=== PATIENT | female | born 1960 | race Caucasian/White ===

== ENCOUNTER 2019-05-17 08:38 | Outpatient (CLI) | payer BC, SELFPAY ==
--- NOTE | ~2019-05-17 | MM_ITS ---
EXAMINATION: MM screening young BI w ce HISTORY: Screening mammogram TECHNIQUE: Craniocaudal and mediolateral oblique 3-D tomosynthesis images were obtained and synthetic 2-D images were generated. CAD analysis was submitted and interpreted. COMPARISON: Comparison to multiple prior studies sequentially, with oldest reviewed study dated 10/2015. BREAST PARENCHYMAL COMPOSITION: The breasts are heterogeneously dense, which may obscure small masses . FINDINGS: There is no evidence of suspicious mass, calcification, or architectural distortion to sugg est malignancy in either breast. There has been no suspicious interval change. IMPRESSION: 1. No mammographic evidence of malignancy. 2. Recommend routine screening mammography in one year. BI-RADS Category 1: Negative Reviewed, dictated and finalized at location A.
== END 2019-05-17 08:39 | disposition home or self-care (01) ==
LOC: ANHIMG 08:46
PROVIDERS: PCP Obstetrics & Gynecology; Visit Provider Obstetrics & Gynecology
DX: Z12.31 Encounter for screening mammogram for malignant neoplasm of breast (principal)
CPT/HCPCS: 77063; 77067

== ENCOUNTER 2020-06-27 16:33 | Outpatient (CLI) | payer BC, SELFPAY ==
--- NOTE | ~2020-06-27 | MM_ITS ---
EXAMINATION: MM screening young BI w ce HISTORY: Screening mammogram TECHNIQUE: Craniocaudal and mediolateral oblique 3-D tomosynthesis images were obtained and synthetic 2-D images were generated. CAD analysis was submitted and interpreted. COMPARISON: 05/17/2019, 04/26 2018, 04/22/2017 bilateral digital screening mammogram examinations BREAST PARENCHYMAL COMPOSITION: There are scattered areas of fibroglandular density. FINDINGS: There is no evidence of suspicious mass, calcification, or architectural distortion to sugg est malignancy in either breast. There has been no suspicious interval change. IMPRESSION: 1. No mammographic evidence of malignancy. 2. Recommend routine screening mammography in one year. BI-RADS Category 1: Negative Reviewed, dictated and finalized at location A.
== END 2020-06-27 16:34 | disposition home or self-care (01) ==
PROVIDERS: PCP Obstetrics & Gynecology; Visit Provider Obstetrics & Gynecology
DX: Z12.31 Encounter for screening mammogram for malignant neoplasm of breast (principal)
CPT/HCPCS: 77063; 77067

== ENCOUNTER 2021-07-15 17:05 | Outpatient (CLI) | payer BC, SELFPAY ==
--- NOTE | ~2021-07-15 | MM_ITS ---
EXAMINATION: MM screening [facility] BI w ce HISTORY: Screening mammogram TECHNIQUE: Craniocaudal and mediolateral oblique 3-D tomosynthesis images were obtained and synthetic 2-D images were generated. CAD analysis was submitted and interpreted. COMPARISON: 06/27/2020, 05/17/2019, 04/26/2018 BREAST PARENCHYMAL COMPOSITION: There are scattered areas of fibroglandular density. FINDINGS: There is no suspicious mass, calcification, or architectural distortion to suggest malignan cy in either breast. There has been no suspicious interval change. IMPRESSION: 1. No mammographic evidence of malignancy. 2. Recommend routine screening mammography in one year. BI-RADS Category 1: Negative Reviewed, dictated and finalized at location A.
== END 2021-07-15 17:06 | disposition home or self-care (01) ==
PROVIDERS: PCP Nurse Practitioner Family; Visit Provider Obstetrics & Gynecology
DX: Z12.31 Encounter for screening mammogram for malignant neoplasm of breast (principal)
CPT/HCPCS: 77063; 77067

== ENCOUNTER 2021-08-06 00:39 | Day surgery (SDC) | payer BC, SELFPAY ==
[2021-07-15 14:35] VITALS: BMI 24.5
--- NOTE | 2021-08-05 16:38 | PM.HPGS ---
History of Present Illness History of Present Illness Consent: Risks, benefits, and alternatives have been discussed and questions answered. Patient agrees to proceed with procedure. Chief complaint: neoplasm screening Narrative: Jaqueline Clements is a 61 year old female referred for colon cancer screening. This is her 1st colonoscopy. She does not have a family history of colon cancer. 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 Gender identity (if verbalized by the patient): Female Sexual Orientation (if Verbalized by the Patient): Straight or Heterosexual Spiritual care concerns: No Meds Home Medications and Allergies Home Medications Medication Instructions Recorded Confirmed Type multivitamin with minerals-folic 1 tablet PO DAILY 07/15/21 07/15/21 History acid 0.4 mg tablet Allergies Allergy/AdvReac Type Severity Reaction Status Date / Time No Known Allergies Allergy Unverified 08/06/21 06:19 Exam Const: General: alert Orientation/consciousness: patient oriented x3 Resp: Auscultation: clear to auscultation bilaterally Cardio: Rhythm: regular rhythm GI: GI Palp: Yes Soft to palpation and No Tenderness to palpation present (GI) Neuro: General: patient oriented x3 Assessment and Plan Assessment and plan (1) Colon cancer screening: Code(s): Z12.11 - Encounter for screening for malignant neoplasm of colon Status: Acute Plan Colonoscopy with possible biopsy or polypectomy or cautery or injection of substances.
[2021-08-06 06:20] VITALS: BP 131/69; PULSE 73; RESP 16; TEMP 36.6; O2SAT 100
[2021-08-06] MEDS: LACTATED RINGERS 1,000 ML 150 ML IV CONT (06:33)
--- NOTE | 2021-08-06 07:19 | WPDANESEPPF ---
Anes - Initial Pre Proc Eval Procedure: Operation Date: 08/06/21 07:30 Proposed Procedures p Screening Colonoscopy - Federico Osorio MD Date/Time: 08/06/21 07:19 Surgeon: Federico Osorio MD Pre Op Diagnosis: neoplasm screening Patient Data Age: 61 Gender: F Height: 1.52 m Weight: 58.5 kg Last Vital Signs Temp 97.9 F 08/06/21 06:20 Pulse 73 08/06/21 06:20 Resp 16 08/06/21 06:20 BP 131/69 08/06/21 06:20 Pulse Ox 100 08/06/21 06:20 O2 Del Method Room Air 08/06/21 06:20 Allergies Allergy/AdvReac Type Severity Reaction Status Date / Time No Known Allergies Allergy Unverified 08/06/21 06:19 Home Medications Medication Instructions Recorded Confirmed Type multivitamin with minerals-folic 1 tablet PO DAILY 07/15/21 07/15/21 History acid 0.4 mg tablet Patient hx anesthesia problems: none Family hx anesthesia problems: none Results Review: All pre-operative results and documents have been reviewed as part of the pre-operative evaluation. 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 Gender identity (if verbalized by the patient): Female Sexual Orientation (if Verbalized by the Patient): Straight or Heterosexual Spiritual care concerns: No Anes - Eval Final PreProcedure Day of Procedure 08/06/21 07:19 Patient weight: normal Heart: regular rate and rhythm Lungs: clear to auscultation Airway: Mallampati scale class II Neurological: alert and oriented Last oral intake: >/= 8 hours ASA classification: I Emergent: no Anesthetic plan: proceed Anesthesia type and monitoring: general GIVS and standard monitoring Results Review: All pre-operative results and documents have been reviewed as part of the pre-operative evaluation. Informed Consent: The patient's anesthetic plan and its attendant risks and benefits were discussed with the patient/family/POA. Questions were solicited and answers provided to the satisfaction of the patient/family/POA.
[2021-08-06 07:56] VITALS: BP 84/50; PULSE 70; RESP 19; O2SAT 100
[2021-08-06 08:06] VITALS: BP 98/69; PULSE 62; RESP 22; O2SAT 100
[2021-08-06 08:16] VITALS: BP 111/76; PULSE 65; RESP 18; O2SAT 100
== END 2021-08-06 08:25 | disposition home or self-care (01) ==
PROVIDERS: PCP Nurse Practitioner Family; Visit Provider Internal Medicine Gastroenterology
PROC: 0DJD8ZZ Inspection of Lower Intestinal Tract, Via Natural or Artificial Opening Endoscopic (ICD-10-PCS; CPT 45378; principal; 2021-08-06 07:30)
DX: Z12.11 Encounter for screening for malignant neoplasm of colon (principal); K57.30 Diverticulosis of large intestine without perforation or abscess without bleeding
CPT/HCPCS: 45378; J2704; J7120

== ENCOUNTER 2021-09-11 14:42 | Outpatient (CLI) | payer BC, SELFPAY ==
--- NOTE | ~2021-09-11 | DEXA_ITS ---
Bone Density Report Name: SVETLANA MCCARTY Age: 61 Sex: Female Ethnicity: White Date of : 1960 Indication: postmenopausal; screening for osteoporosis; Referring Provider: VANESSA, CAREY Darden Study: Bone densitometry was performed. Exam Date: September 11, 2021 Accession number: [id number] Bone Density: Region BMD T-score Z-score Classification AP Spine(L1-L4) 0.739 -2.8 -1.4 Osteoporosis Femoral Neck (Left) 0.595 -2.3 -1.0 Osteopenia Total Hip (Left) 0.717 -1.8 -0.9 Osteopenia Femoral Neck (Right) 0.609 -2.2 -0.9 Osteopenia Total Hip (Right) 0.699 -2.0 -1.1 Osteopenia Total Hip Mean 0.708 -1.9 -1.0 Osteopenia World Health Organization criteria for BMD impression classify patients as: Normal (T-score at or above -1.0), Osteopenia (T-score between -1.0 and -2.5), or Osteoporosis (T-score at or below -2.5). 10-year Fracture Risk: FRAX not reported because: Some T-score for Spine Total or Hip Total or Femoral Neck at or below -2.5 Clinical Information Provided by Patient: Patient maximum height was 60 Menopause Age: 57 No regular weight bearing exercise Drinks caffeinated beverages Onset of menses at age 16 Number of children 2 Impression: The patient has osteoporosis, based on the Total Spine T-score. Discussion: INCREASED RISK OF FRACTURE. BONE DENSITY IS UNDESIRABLY LOW AT ONE OR MORE SKELETAL SITES, CONSISTENT WITH POSTMENOPAUSAL OSTEOPOROSIS. This patient's lowest T-score meets the World Health Organization's (WHO) criteria for osteoporosis at one or more sites (T-score -2.5 or below). In untreated patients, the risk of osteoporotic fracture increases approximately two-fold for each 1.0 SD decrease in T-score. Low bone density is not the only risk factor for fracture; also consider factors such as patient's age, frailty or poor health, risk of falling, risk of injury, previous osteoporotic fracture, family history of osteoporosis, cigarette smoking, low body weight, etc. Not everyone with low bone mineral density has osteoporosis; osteomalacia and other metabolic bone disorders should also be considered. Patients who have osteoporosis should be evaluated for specific diseases and conditions (secondary causes) that may cause or contribute to bone loss. The [place] Association [employer] Endocrinologists (AACE) and National Osteoporosis Foundation (NOF) recommend pharmacologic intervention for all postmenopausal women whose T-score is in this range. The patient should follow a healthful lifestyle (good nutrition with adequate calcium and vitamin D, and appropriate weight-bearing exercise). Follow-Up: Consider a repeat BMD and Vertebral Fracture Assessment (VFA) exam in 2 years or sooner if medically necessary, to reassess this patient's status. Reported by: [facility] on 09/11/2021 3:05:00 PM.
== END 2021-09-11 14:43 | disposition home or self-care (01) ==
PROVIDERS: PCP Nurse Practitioner Family; Visit Provider Nurse Practitioner Family
DX: Z13.820 Encounter for screening for osteoporosis (principal); Z78.0 Asymptomatic menopausal state; M81.0 Age-related osteoporosis without current pathological fracture; M85.89 Other specified disorders of bone density and structure, multiple sites
CPT/HCPCS: 77080

== ENCOUNTER 2022-10-14 16:30 | Outpatient (CLI) | payer BC, SELFPAY ==
--- NOTE | ~2022-10-14 | MM_ITS ---
EXAMINATION: MM screening young BI w ce HISTORY: Screening TECHNIQUE: Craniocaudal and mediolateral oblique 3-D tomosynthesis images were obtained and synthetic 2-D images were generated. CAD analysis was submitted and interpreted. COMPARISON: Comparison to multiple prior studies sequentially, with oldest reviewed study dated 10/19. BREAST PARENCHYMAL COMPOSITION: There are scattered areas of fibroglandular density. FINDINGS: The right breast is stable without evidence for malignancy. There are subtle asymmetries in the upper outer quadrant of the left breast with possible architectural distortion. IMPRESSION: 1. Possible new subtle asymmetries upper outer quadrant of the left breast with questionable architec tural distortion. 2. Additional mammographic views and possible breast ultrasound are recommended. BI-RADS Category 0: Incomplete: Needs additional imaging evaluation. Reviewed, dictated and finalized at location A. IMPRESSION: 1. Possible new subtle asymmetries upper outer quadrant of the left breast with questionable architectural distortion. 2. Additional mammographic views and possible breast ultrasound are recommended . BI-RADS Category 0: Incomplete: Needs additional imaging evaluation.
== END 2022-10-14 16:31 | disposition home or self-care (01) ==
LOC: ANHIMG 16:31
PROVIDERS: PCP Nurse Practitioner Family; Visit Provider Obstetrics & Gynecology
DX: Z12.31 Encounter for screening mammogram for malignant neoplasm of breast (principal); R92.8 Other abnormal and inconclusive findings on diagnostic imaging of breast
CPT/HCPCS: 77063; 77067

== ENCOUNTER 2022-11-12 12:23 | Outpatient (CLI) | payer BC, SELFPAY ==
--- NOTE | ~2022-11-12 | MMUS_ITS ---
EXAMINATION: MM diagnostic young LT w ce, US breast LT limited HISTORY: Possible new subtle asymmetries/architectural distortion reported in upper outer left breast on 10/15/2019 screening mammogram TECHNIQUE: Additional 3-D tomosynthesis images of the left breast were performed and synthetic 2-D im ages were generated. CAD analysis was submitted and interpreted. High resolution upper outer quadrant left breast ultrasound was performed. COMPARISON: 10/15/2019 bilateral screening mammogram FINDINGS: MAMMOGRAPHIC FINDINGS: No suspicious mass or architectural distortion is detected mammographically ULTRASOUND: No suspicious mass or shadowing, cyst or other significant sonographic abnormality is noted. IMPRESSION: 1. No mammographic evidence of malignancy 2. Routine annual mammographic screening is recommended. BI-RADS Category 1: Negative Reviewed, dictated and finalized at location A. IMPRESSION: 1. No mammographic evidence of malignancy 2. Routine annual mammographic screening is recommended. BI-RADS Category 1: Negative
== END 2022-11-12 12:24 | disposition home or self-care (01) ==
PROVIDERS: PCP Nurse Practitioner Family; Visit Provider Obstetrics & Gynecology
DX: N64.89 Other specified disorders of breast (principal)
CPT/HCPCS: 76642; 77061; 77065; G0279

== ENCOUNTER 2022-12-18 08:14 | Emergency (ER) | payer BC, SELFPAY ==
[2022-12-18 08:28] VITALS: BP 146/75; PULSE 100; RESP 16; TEMP 36.9; O2SAT 97
--- NOTE | 2022-12-18 08:28 | ED.GENADULT ---
HPI - General Adult General Chief complaint: Fever Stated complaint: Fever Source: patient Mode of arrival: ambulatory Limitations: no limitations History of Present Illness HPI narrative: 62 y/o female presented for c/o fever and headache for one week, after returning from [facility]. States the first 3 days after onset were bad with body aches as well. States the fever is usually at 1400 and 1800 every day, then breaks. Reports decreased appetite. Pt states multiple covid tests at home were negative. Denies sick contacts. Denies cough, sob/wheezing, cp, palpitations, n/v/d. Patient admits to urinary frequency, some pressure with urination, and urgency. Alternating Tylenol and ibuprofen. Related Data Home Medications Medication Instructions Recorded Confirmed multivitamin with minerals-folic 1 tablet PO DAILY 07/15/21 12/18/22 acid 0.4 mg tablet rosuvastatin 5 mg tablet 5 mg DIRECTED 12/18/22 12/18/22 Allergies Allergy/AdvReac Type Severity Reaction Status Date / Time No Known Allergies Allergy Verified 07/21/22 07:59 Review of Systems Review of Systems: CONSTITUTIONAL: Reports fever and sweats EYES: Denies visual changes, redness, or discharge. ENT: Denies rhinorrhea, congestion, sore throat, or otalgia. CARDIOVASCULAR: Denies chest pain, palpitations, or edema. RESPIRATORY: Reports occasional cough denies wheezing or dyspnea. GASTROINTESTINAL: Reports decreased appetite denies abdominal pain, nausea, vomiting, or diarrhea. GENITOURINARY: Denies dysuria or hematuria. SKIN: Denies rash, itching, or wounds. MUSCULOSKELETAL: Denies back pain, joint pain, or myalgia. NEUROLOGIC: Reports headache, Denies numbness, tingling, or weakness. PSYCH: Denies depression or anxiety. All systems reviewed & are unremarkable except as noted in HPI and below PMFSH Past Medical History Medical History Basal cell carcinoma (BCC) in situ of skin (~04/29/14) lower back Screening mammogram, encounter for Family History Family History Mother Hypertension Father Hypertension Social History Social History Smoking status: Never smoker Alcohol intake: current Drinks per week: 1 Substance use: never Substance use type: does not use Lack of Transportation: No Lack of Food: Never True Current Housing: I Have Housing Concerned About Future Housing: No Difficulty Paying Gas/Electric Bills: No Difficulty Paying for Meds: No Currently Unemployed: No Education: Master's Degree or Higher Difficulty w/ Childcare or Family Care: No Living arrangements: with family Additional living arrangements comments: Occupation/Education: occupation 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 Please see nursing chart for further information. There is no relevant family history pertinent to the presenting complaint Exam Narrative: GENERAL: Well-appearing, and in no acute distress. HEAD: Normocephalic, atraumatic. EYES: EOMI. No redness or drainage. Conjunctivae normal. ENT: Mucous membranes pink and moist. No rhinorrhea. TMs normal bilaterally. Throat normal. Uvula midline. NECK: Normal AROM. Supple. No lymphadenopathy. CHEST: No respiratory distress. Clear to auscultation. HEART: Regular rate and rhythm. No murmur appreciated. Normal peripheral pulses. ABDOMEN: Soft, nontender, nondistended, normal active bowel sounds. MUSCULOSKELETAL: No bony tenderness. EXTREMITIES: Normal range of motion. No edema. SKIN:
== END 2022-12-18 09:34 | disposition home or self-care (01) ==
PROVIDERS: Emergency Provider Nurse Practitioner Family; PCP Nurse Practitioner Family
DX: R35.0 Frequency of micturition (principal); Z85.828 Personal history of other malignant neoplasm of skin
CPT/HCPCS: 81003; 87081; 87086; 87880; 99213; G0463

== ENCOUNTER 2022-12-23 10:06 | Emergency (ER) | payer BC, SELFPAY ==
[2022-12-23] VITALS (7 sets, daily range): BP systolic 127–143; BP diastolic 81–83; PULSE 70–94; RESP 16–25; TEMP 36.8; O2SAT 94–99
--- NOTE | ~2022-12-23 | CT_ITS ---
EXAMINATION: CT abdomen pelvis wo con DATE: 12/23/2022 13:26 INDICATION: Ascites TECHNIQUE: Computed tomography (CT) of the abdomen and pelvis was performed without intravenous contr ast. The dose-length product was 292.08 mGy-cm. Automated exposure control and iterative reconstructi on technique were employed. COMPARISON: None. FINDINGS: Right lower lobe airspace disease, compatible with pneumonia. Small right pleural effusion. Trace left pleural effusion. Heart size normal. The liver, spleen, pancreas, adrenal glands and kidn eys are unremarkable. Gallbladder is present. Nonobstructive bowel gas pattern. No free air or free f luid. No significant vascular abnormality. No lymphadenopathy. No lymphadenopathy. IMPRESSION: 1. Right lower lobe pneumonia with small right pleural effusion. Trace left pleural effusion. Reviewed, dictated and finalized at location B. IMPRESSION: 1. Right lower lobe pneumonia with small right pleural effusion. Trace left ple ural effusion.
--- NOTE | ~2022-12-23 | XR_ITS ---
Clinical Indication: Elevated BNP PA and lateral views of the chest: Comparison: None Findings: There is mild bibasilar airspace disease, right worse than left, suggestive of mild pulmona ry edema. Probable minimal pleural effusions. Cardiomediastinal silhouette is within normal limits. Bones and soft tissues are unremarkable. Impression: Probable bibasilar pulmonary edema, right worse than left, with minimal pleural effusions. Correlate clinically for pneumonia. Reviewed, dictated and finalized at [facility]. Impression: Probable bibasilar pulmonary edema, right worse than left, with minimal pleural effusions. Correlate clinically for pneumonia.
--- NOTE | 2022-12-23 11:44 | ED.GENADULT ---
HPI - General Adult General Chief complaint: Unspecified Stated complaint: swelling of extremities/abd Time Seen by Provider: 12/23/22 11:22 History of Present Illness HPI narrative: 62-year-old female no medical problems presents to the emergency room for evaluation of swelling to her extremities and abdomen. Patient states that she has been experiencing a low-grade fever for over a week and went to urgent care. Provider urgent care collected a urinalysis which showed positive for hematuria. Patient was placed on Cipro and began taking that 5 days ago. States 2 days ago she began developing swelling to her hands and feet Related Data Home Medications Medication Instructions Recorded Confirmed multivitamin with minerals-folic 1 tablet PO DAILY 07/15/21 12/18/22 acid 0.4 mg tablet rosuvastatin 5 mg tablet 5 mg DIRECTED 12/18/22 12/18/22 Allergies Allergy/AdvReac Type Severity Reaction Status Date / Time No Known Allergies Allergy Verified 12/23/22 10:09 Review of Systems Review of Systems: CONSTITUTIONAL: Denies fever, chills, or sweats. EYES: Denies visual changes, redness, or discharge. ENT: Denies rhinorrhea, congestion, sore throat, or otalgia. CARDIOVASCULAR: Denies chest pain, palpitations, or edema. RESPIRATORY: Denies cough or dyspnea. GASTROINTESTINAL: Denies abdominal pain, nausea, vomiting, or diarrhea. GENITOURINARY: Denies dysuria or hematuria. SKIN: Denies rash or itching. MUSCULOSKELETAL: Denies back pain, joint pain, or myalgia. NEUROLOGIC: Denies headache, numbness, dizziness, or weakness. PSYCHIATRIC: Denies anxiety or depression. [facility] Past Medical History Medical History Basal cell carcinoma (BCC) in situ of skin (~04/29/14) lower back Screening mammogram, encounter for Family History Family History Mother Hypertension Father Hypertension Social History Social History Smoking status: Never smoker Alcohol intake: current Drinks per week: 1 Substance use: never Substance use type: does not use Lack of Transportation: No Lack of Food: Never True Current Housing: I Have Housing Concerned About Future Housing: No Difficulty Paying Gas/Electric Bills: No Difficulty Paying for Meds: No Currently Unemployed: No Education: Master's Degree or Higher Difficulty w/ Childcare or Family Care: No Living arrangements: with family Additional living arrangements comments: Occupation/Education: occupation 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 HEAD: Normocephalic, atraumatic. EYES: Conjunctivae normal, PERRLA and EOMI. CHEST: Clear to auscultation. No respiratory distress. No wheezes rales or rhonchi. No tenderness. HEART: Regular rate and rhythm. No murmur heard. Normal peripheral pulses. ABDOMEN: Soft, nontender, nondistended, normal active bowel sounds. BACK: No CVA tenderness EXTREMITIES: Normal range of motion. Generalized nonpitting edema to hands and ankles. No clubbing or cyanosis SKIN: Warm, dry, no rash. No noted wounds NEURO: No focal deficits. Alert and oriented x3. MAEW. CN's II-XI intact bilaterally, normal gait PSYCH: Cooperative. Normal mood and affect. Course Vital Signs Vital signs: Vital Signs Temperature 36.8 C 12/23/22 10:21 Pulse Rate 94 12/23/22 10:21 Respiratory Rate 16 12/23/22 10:21 Blood Pressure 143/81 H 12/23/22 10:21 Pulse Oximetry 94 12/23/22 10:21 Temperature 36.8 C 12/23/22 10:21 Pulse Rate 70 12/23/22 13:23 Respiratory R
[2022-12-23 12:08] LABS: Basophils Absolute Auto 0.1 K/mm3 (0.0-0.1); Basophils Percent Auto 0.5 % (0.2-1.2); Eosinophils Absolute Auto 0.2 K/mm3 (0-0.3); Eosinophils Percent Auto 1.2 % (0-4.4); Hematocrit 36.6 % (37.0-47.0); Hemoglobin 11.7 g/dL (12.0-15.0); Immature Granulocyte Absolute 0.22 K/mm3 (0.00-0.031); Immature Granulocyte Percent A 1.5 % (0-0.5); Lymphocytes Absolute Auto 1.98 K/mm3 (0.9-3.2); Lymphocytes Percent Auto 13.2 % (18.3-44.2); Mean Corpuscular Hemoglobin 29.8 pg (26-34); Mean Corpuscular Volume 93.1 fl (80-100); Mean Platelet Volume 8.5 fl (7.4-10.4); Monocytes Percent Auto 6.6 % (2.6-8.5); Neutrophils Absolute Auto 11.5 K/mm3 (1.3-6.7); Platelet Count Result 699 k/mm3 (150-375); Red Blood Count 3.93 M/mm3 (4.2-5.4); Red Cell Distribution Width 13.2 % (11.5-14.5)
[2022-12-23 12:11] LABS: Add Urine Microscopic? YES; Appearance Urine Clear (Clear); Bacteria Urine None Seen /hpf; Bilirubin Urine Negative (Negative); Blood Urine 1+ (Negative); Color Urine Yellow (Yellow); Glucose Urine UA Negative (Negative); Ketones Urine Negative (Negative); Leukocyte Esterase Ur Negative LEU/UL (Negative); Nitrate Urine Negative (Negative); Non Pathogenic Casts 0-2; Protein Urine Negative (Negative); Squamous Epithelial Cell Urine None seen /hpf (Few); Urobilinogen Urine 0.2 mg/dL (<2.0); WBC Urine 0-5 /hpf
[2022-12-23 12:24] LABS: Alanine Aminotransferase 26 U/L (6-35); Albumin Level 3.4 g/dL (3.5-5.1); Alkaline Phosphatase 88 U/L (38-126); Anion Gap 3 mmol/L (8-16); Aspartate Amino Transferase 45 U/L (14-36); Bilirubin,Total 0.4 mg/dL (0.2-1.3); Blood Urea Nitrogen 12 mg/dL (7-17); Calcium 8.5 mg/dL (8.4-10.2); Carbon Dioxide 36 mmol/L (22-30); Chloride 100 mmol/L (98-107); Estimated CRCL calculation 61 ml/min; Estimated Glomerular Filt Rate > 60; Glucose 93 mg/dL (65-110); Potassium 2.9 mmol/L (3.4-5.0); Sodium 139 mmol/L (137-145)
[2022-12-23 12:27] LABS: NT Pro B Type Natriuretic Pept 2140 pg/mL (19.9-100)
--- NOTE | 2022-12-23 13:12 | ECG_ITS ---
Measurements Intervals [place] Rate: 80 P: -3 KS: 138 QRS: -46 QRSD: 149 T: 83 QT: 433 QTc: 500 Interpretive Statements SINUS RHYTHM MARKED LEFT AXIS DEVIATION [QRS AXIS < -30] LEFT BUNDLE BRANCH BLOCK [120+ ms QRS DURATION, 80+ ms Q/S IN V1/V2, 85+ ms R IN I/aVL/V5/V6] NO PREVIOUS ECG AVAILABLE FOR COMPARISON Electronically Signed On 12-23-2022 20:25:22 CDT by Radha English M.D.
[2022-12-23 14:15] LABS: Troponin I < 0.012 ng/mL (0.000-0.034)
[2022-12-23] MEDS: POTASSIUM CHLORIDE 20 MEQ PACKET (FOR LIQUID) 40 MEQ PO (14:36)
== END 2022-12-23 15:13 | disposition home or self-care (01) ==
PROVIDERS: Emergency Provider Nurse Practitioner Family; PCP Nurse Practitioner Family
DX: J18.9 Pneumonia, unspecified organism (principal); I50.9 Heart failure, unspecified; I44.7 Left bundle-branch block, unspecified
CPT/HCPCS: 36415; 71046; 74176; 80053; 81001; 83880; 84484; 85025; 93005; 96365; 99284; A9270; J0696

== ENCOUNTER 2022-12-23 18:21 | Observation (INO) | payer BC, SELFPAY ==
--- NOTE | ~2022-12-23 | CT_ITS ---
EXAMINATION: CTA chest PE protocol DATE: 12/23/2022 21:30 INDICATION: SOB with elevated D-dimer TECHNIQUE: Computed tomography angiography (CTA) of the chest was performed with 100 mL Omnipaque-350 intravenous contrast timed to evaluate the pulmonary arteries. Coronal maximum intensity projection 3D-reconstructions were created by the technologist. The dose-length product (DLP) was 172.91 mGy-cm. Automated exposure control and iterative reconstruction technique were employed. COMPARISON: None. FINDINGS: Lung parenchyma and airways: Dependent right lower lobe consolidation. Scattered centrilobular nodula r groundglass opacities. Pleura: Small volume right pleural fluid collection. Thoracic inlet, axillae and chest wall: Unremarkable. Thoracic aorta: Normal. Mediastinum: Normal. Heart and pericardium: Normal. Coronary artery calcifications: . Upper abdomen: No significant finding. Bones: No acute osseous finding. Pulmonary arteries: Study quality: Adequate. No pulmonary emboli detected. IMPRESSION: No CT evidence of acute pulmonary embolus. Dependent right lower lobe consolidation may represent atelectasis or infection. Scattered groundglass nodular opacities as can be seen with hypersensitivity pneumonitis, respiratory bronchitis, or infectious airways disease. Recommend low-dose noncontrast CT follow-up after appropr iate therapy to assess for resolution. Reviewed, dictated and finalized at location K. IMPRESSION: No CT evidence of acute pulmonary embolus. Dependent right lower lobe consolidation may represent atelectasis or infection . Scattered groundglass nodular opacities as can be seen with hypersensitivity pn eumonitis, respiratory bronchitis, or infectious airways disease. Recommend low -dose noncontrast CT follow-up after appropriate therapy to assess for resoluti on.
[2022-12-23 18:22] VITALS: BP 147/86; PULSE 89; RESP 20; TEMP 36.5; O2SAT 99
--- NOTE | 2022-12-23 19:08 | ECG_ITS ---
Measurements Intervals [place] Rate: 79 P: 9 MT: 137 QRS: -32 QRSD: 134 T: 64 QT: 401 QTc: 460 Interpretive Statements SINUS RHYTHM MARKED LEFT AXIS DEVIATION [QRS AXIS < -30] LEFT BUNDLE BRANCH BLOCK [120+ ms QRS DURATION, 80+ ms Q/S IN V1/V2, 85+ ms R IN I/aVL/V5/V6] INTERPRETATION BASED ON A DEFAULT AGE OF 40 YEARS COMPARED TO ECG 12/23/2022 13:43:46 NO SIGNIFICANT CHANGES Electronically Signed On 12-23-2022 20:38:27 CDT by Radha English M.D.
[2022-12-23 19:21] VITALS: PULSE 82
--- NOTE | 2022-12-23 19:35 | ED.GENADULT ---
HPI - General Adult General Chief complaint: Unspecified Stated complaint: chf Time Seen by Provider: 12/23/22 19:02 Source: patient and family Limitations: no limitations History of Present Illness HPI narrative: Patient is a 62-year-old female present to the emergency department for 1 week of diffuse swelling throughout her body in addition to dyspnea on exertion. Patient denies any chest pain. Patient notes that she was here earlier today and had a full work-up and was started on antibiotics for pneumonia and talk to her primary care physician who told her to come back in to be admitted for CHF. Patient denies any history of heart disease. Patient denies history of blood clots or unilateral lower extremity swelling. Patient notes that she has been also being treated for urinary tract infection for the past approximately 4 to 5 days because she had blood in her urine but denies any history of dysuria, urinary frequency, urinary urgency. Patient denies any preceding illness in the past 2 months but notes that she was treated for urinary tract infection because approximately 1 week ago she developed fever while in [place] and subsequently sought a further evaluation when she got back to the . Patient denies vomiting, nausea, diarrhea, abdominal pain, numbness, weakness, sore throat, nasal congestion. Patient admits to a nonproductive cough for the past 1 week. Related Data Home Medications Medication Instructions Recorded Confirmed multivitamin with minerals-folic 1 tablet PO DAILY 07/15/21 12/24/22 acid 0.4 mg tablet rosuvastatin 5 mg tablet 5 mg PO QHS 12/18/22 12/24/22 Allergies Allergy/AdvReac Type Severity Reaction Status Date / Time No Known Allergies Allergy Verified 12/23/22 10:09 Review of Systems Review of Systems: A 10 system review of systems was completed on the patient and is negative except for what is stated in the HPI. Nursing and ancillary documentation was reviewed. [facility] Past Medical History Medical History (Updated 12/26/22 @ 02:[address] DO) Basal cell carcinoma (BCC) in situ of skin (~04/29/14) lower back Colon cancer screening Screening mammogram, encounter for Family History Family History Mother Hypertension Father Hypertension Social History Social History Smoking status: Never smoker Alcohol intake: current Drinks per week: 2 Substance use: never Substance use type: does not use Lack of Transportation: No Lack of Food: Never True Current Housing: I Have Housing Concerned About Future Housing: No Difficulty Paying Gas/Electric Bills: No Difficulty Paying for Meds: No Currently Unemployed: No Education: Bachelor's Degree Difficulty w/ Childcare or Family Care: No Living arrangements: with family Additional living arrangements comments: Occupation/Education: occupation 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 Please see the nursing chart for further information. There is no relevant family history pertinent to the presenting complaint. Exam Narrative: CONST: No acute distress. Well nourished. HENMT: Head is normocephalic and atraumatic. Moist mucous membranes. No posterior oropharynx erythema. EYES: No conjunctival icterus, injection, or pallor. PERRL. NECK: No meningeal signs. RESP: Able to speak in full sentences. Normal respiratory effort. CTAB however slightly diminished at the bilateral bases. CARDIO: Regular rate. Regular rhythm. 2+ DP and radial pulses bilaterally. GI:
[2022-12-23 19:42] LABS: Basophils Absolute Auto 0.1 K/mm3 (0.0-0.1); Basophils Percent Auto 0.5 % (0.2-1.2); Eosinophils Absolute Auto 0.3 K/mm3 (0-0.3); Eosinophils Percent Auto 2.1 % (0-4.4); Hematocrit 35.8 % (37.0-47.0); Hemoglobin 11.2 g/dL (12.0-15.0); Immature Granulocyte Absolute 0.15 K/mm3 (0.00-0.031); Immature Granulocyte Percent A 1.2 % (0-0.5); Lymphocytes Absolute Auto 2.17 K/mm3 (0.9-3.2); Lymphocytes Percent Auto 16.6 % (18.3-44.2); Mean Corpuscular HGB Conc 31.3 g/dl (32-36); Mean Corpuscular Hemoglobin 29.6 pg (26-34); Mean Corpuscular Volume 94.5 fl (80-100); Mean Platelet Volume 8.4 fl (7.4-10.4); Monocytes Percent Auto 7.9 % (2.6-8.5); Neutrophils Absolute Auto 9.4 K/mm3 (1.3-6.7); Neutrophils Percent Auto 71.7 % (45.5-73.1); Platelet Count Result 664 k/mm3 (150-375); Red Blood Count 3.79 M/mm3 (4.2-5.4); Red Cell Distribution Width 13.2 % (11.5-14.5)
[2022-12-23 19:52] LABS: Prothrombin Time 13.3 Seconds (11.1-14.7)
[2022-12-23 19:57] LABS: Alanine Aminotransferase 26 U/L (6-35); Albumin Level 3.2 g/dL (3.5-5.1); Alkaline Phosphatase 75 U/L (38-126); Anion Gap 1 mmol/L (8-16); Aspartate Amino Transferase 50 U/L (14-36); Bilirubin,Total 0.3 mg/dL (0.2-1.3); Blood Urea Nitrogen 16 mg/dL (7-17); Calcium 8.4 mg/dL (8.4-10.2); Carbon Dioxide 37 mmol/L (22-30); Chloride 102 mmol/L (98-107); Estimated CRCL calculation 47 ml/min; Estimated Glomerular Filt Rate > 60; Glucose 108 mg/dL (65-110); Magnesium 2.1 mg/dL (1.6-2.3); Potassium 3.6 mmol/L (3.4-5.0); Sodium 140 mmol/L (137-145)
[2022-12-23 20:02] LABS: Partial Thromboplastin Time 35.1 SECONDS (22.3-36.8)
[2022-12-23 20:08] LABS: D Dimer 2.86 ug/mL (<0.48); NT Pro B Type Natriuretic Pept 1730 pg/mL (19.9-100); Troponin I < 0.012 ng/mL (0.000-0.034)
--- NOTE | 2022-12-23 22:05 | PC.NURSE ---
Patient states she is post-menopausal. Did not perform bedside test.
[2022-12-23 22:19] VITALS: BP 137/93
[2022-12-23 23:00] VITALS: BP 148/89
[2022-12-23 23:40] VITALS: BP 145/81; PULSE 88; RESP 20; O2SAT 99
[2022-12-23] MEDS: SODIUM CHLORIDE 0.9% IV 1,000 ML 125 ML IV CONT (23:42)
[2022-12-24] VITALS (14 sets, daily range): BP systolic 123–162; BP diastolic 64–89; PULSE 70–108; RESP 16–20; TEMP 36.2–36.8; O2SAT 94–100; BMI 26.1
--- NOTE | 2022-12-24 | ECHO_ITS ---
Patient Info Name: Jaqueline Clements Age: 62 years : 1960 Gender: Female Ht: 60 in Wt: 120 lbs BSA: 1.53 m2 HR: 108 bpm BP: 137 / 64 mmHg Heart Rhythm: Sinus Rhythm Technical Quality: Good Exam Date: 12/24/2022 1:54 PM Exam Location: [facility] Pulmonary Patient Status: Outpatient Admit Date: 12/23/2022 Staff Ordering Physician: Daniela Yeboah APRN Certified Master Safe Technician: Patrice Perez RDCS Attending Provider: Jesús Hernandez MD Exam Type: CA echo doppler color flow Study Info Indications - chf Complete two-dimensional, color flow and Doppler transthoracic echocardiogram is performed. Summary 1. Complete two-dimensional, color flow and Doppler transthoracic echocardiogram is performed. 2. Left ventricular chamber dimension is normal. 3. Left ventricular systolic function is normal, estimated at 60-65%. 4. The left ventricular diastolic function is grade I diastolic dysfunction. 5. E/e' 10 is mildly elevated. 6. There is mild tricuspid valve regurgitation. 7. No pulmonary hypertension, estimated pulmonary arterial systolic pressure is 35 mmHg. Left Ventricle E/e' 10 is mildly elevated. Left ventricular chamber dimension is normal. Left ventricular systolic function is normal, estimated at 60-65%. The left ventricular diastolic function is grade I diastolic dysfunction. Right Ventricle Right ventricular systolic function is normal and with normal TAPSE 3.0 cm. Right ventricular chamber dimension is normal. Left Atria Left atrial chamber dimension is normal. Right Atria Right atrial chamber dimension is normal. Aortic Valve The aortic valve is trileaflet. There is no aortic valve stenosis. There is no aortic valve regurgitation. Pulmonic Valve There is no pulmonic regurgitation. Mitral Valve There is no mitral valve stenosis. There is no mitral valve regurgitation. Tricuspid Valve There is mild tricuspid valve regurgitation. No pulmonary hypertension, estimated pulmonary arterial systolic pressure is 35 mmHg. Pericardium/Pleural There is no pericardial effusion. Inferior Vena Cava Normal inferior vena cava with >50% collapse upon inspiration consistent with normal right atrial pressure, 5 mmHg. Aorta The aortic root size at the sinus of Valsalva is normal. Left Ventricular Outflow Tract Name Value Normal LVOT 2D LVOT Diameter 1.8 cm LVOT Doppler LVOT Peak Gradient 6 mmHg LVOT Mean Gradient 4 mmHg LVOT VTI 27 cm LVOT VTI/AV VTI Ratio 0.9 LVOT Stroke Volume 72 ml LVOT CO 5.9 l/min LVOT CI 3.9 l/min/m2 Pulmonic Valve Name Value Normal RVOT Doppler RVOT Peak Gradient 2 mmHg PV Doppler PV Peak Gradient
--- NOTE | 2022-12-24 00:52 | ADMGEN ---
This patient, Jaqueline Clements, was admitted to Medical Room 250-01. Patient/family oriented to hospital policies and general routines including ID bracelet, bed and alarms, visiting hours, pain management, procedures, bathroom and other care routines, personal items, smoking policy, room service/diet, and visiting hours. Information on how to activate the Rapid Response Team has been discussed. Patient/Family are encouraged to report perceived risks to care and to ask questions if they do not understand what they are told or what they should do.
[2022-12-24] MEDS: SODIUM CHLORIDE 0.9% IV 1,000 ML 125 ML IV CONT (07:47)
[2022-12-24] MEDS: THERAPEUTIC MULTIVITAMINS/MINERALS TAB (*BKC) 1 TABLET PO (08:44)
[2022-12-24] MEDS: ENOXAPARIN 40 MG/0.4 ML SYRINGE SUB-Q (08:45)
--- NOTE | 2022-12-24 08:45 | PM.CNCAR ---
Assessment and Plan Assessment and plan (1) Shortness of Breath: Code(s): R06.02 - Shortness of breath Status: Acute Assessment and Plan: CT showed RLL pneumonia with WBC 13 adn Plt 664. NTproBNP 1,730 which suggests cardiac strain. EKG shows LBBB. On antibiotics. Obtain echo. (2) Dyslipidemia: Code(s): E78.5 - Hyperlipidemia, unspecified Status: Acute Assessment and Plan: On Rosuvastatin. History of Present Illness History of Present Illness Consult date/time: 12/24/22 08:45 Reason For Visit: Heart Failure Narrative: 62 yr old woman presents to ER with sob. She has a history of dyslipidemia. States she got back from [facility] a week ago and had fever, urinalysis showed UTI. She was started on antibiotics. Then she reports noting swelling of legs and some orthopnea, and SOB, and her PCP told her to return to ER and she did yesterday and found she had pneumonia. She reports dry cough and some orthopnea and puffiness of legs . Normally she can walk 2 miles without any problems. Denies chest pain, palpitations, dizziness. Review of Systems Review of Systems: All systems reviewed & are unremarkable except as noted in HPI and below Constitutional: Constitutional: Reports as per HPI, Denies chills and Reports fever(s) Cardiovascular: Cardiovascular: Reports as per HPI, Denies chest pain, Denies irregular heart rhythm, Reports leg edema and Denies lightheadedness Respiratory: Respiratory: Reports as per HPI, Reports cough and Reports dyspnea Gastrointestinal: Gastrointestinal: Reports as per HPI and Denies abdominal pain Genitourinary: Genitourinary: Reports as per HPI Musculoskeletal: Musculoskeletal: Reports as per HPI Neurologic: Reports as per HPI, Denies dizziness and Denies syncope [facility] Past Medical History Medical History Basal cell carcinoma (BCC) in situ of skin (~04/29/14) lower back Screening mammogram, encounter for Family History Family History Mother Hypertension Father Hypertension Social History Social History Smoking status: Never smoker Alcohol intake: current Drinks per week: 2 Substance use: never Substance use type: does not use Lack of Transportation: No Lack of Food: Never True Current Housing: I Have Housing Concerned About Future Housing: No Difficulty Paying Gas/Electric Bills: No Difficulty Paying for Meds: No Currently Unemployed: No Education: Bachelor's Degree Difficulty w/ Childcare or Family Care: No Living arrangements: with family Additional living arrangements comments: Occupation/Education: occupation 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 Gender identity (if verbalized by the patient): Female Sexual Orientation (if Verbalized by the Patient): Straight or Heterosexual Spiritual care concerns: No Meds Home Medications and Allergies Home Medications Medication Instructions Recorded Confirmed Type multivitamin with minerals-folic 1 tablet PO DAILY 07/15/21 12/24/22 History acid 0.4 mg tablet rosuvastatin 5 mg tablet 5 mg PO QHS 12/18/22 12/24/22 History amoxicillin 875 mg-potassium 1 tablet PO Q12H #14 tabs 12/23/22 12/24/22 Rx clavulanate 125 mg tablet doxycycline hyclate 100 mg capsule 100 mg PO DAILY #14 caps 12/23/22 12/24/22 Rx Allergies Allergy/AdvReac Type Severity Reaction Status Date / Time No Known Allergies Allergy Verified 12/23/22 10:09 Vital Signs Vital Signs - 24 hr 12/23/22 18:22 12/23/22 19:21 12/23/22 22:19 Temperature 97.7 F Pulse Rate 89 82 Respiratory Rate 20 Blood Pressure 147/86 H 137/93 H Pulse Oximetry 99 Oxygen Delivery Room Air 12/23/22 23:40 12/23/22 23:00 12/24/22 00:22 Temperature Pulse Rate 88 77 Respiratory
--- NOTE | 2022-12-24 10:36 | PM.IMHP ---
H&P: HPI History of Present Illness Date/Time: 12/24/22 10:36 Chief Complaint: edema in hands, legs and abdomen Narrative: Patient is a 62-year-old female admitted from the ED after 1 week of diffuse swelling throughout her body, mainly in her hands, feet and abdomen. She developed a high fever 101-102 for approximately one week after returning from vacation in . She finally went to the doctor last Wednesday where she was diagnosed with a UTI and sent home with Cipro. A few days later she felt the swelling and some dyspnea on exertion such as walking up stairs. She denies any chest pain during this time and even now. She has had a dry, non-productive cough. Patient denies vomiting, nausea, diarrhea, abdominal pain, numbness, weakness, sore throat, nasal congestion. Chest XR in ER showed pneumonia, she received one dose of Rocephin IV there. She is shocked because she has no notable medical history. Her parents had hypertension, but she denies familial history of heart disease, stroke or DVT. She does not take medications at home other than a vitamin and rosuvastatin for hyperlipidemia. Patient appears in no distress and able to speak in full sentences without dyspnea. Patient would like to go home today and insists she will follow up outpatient. Discussed we will await cardiology consult and ECHO results. Review of Systems Review of Systems: All systems reviewed & are unremarkable except as noted in HPI and below Cardiovascular: Cardiovascular: Reports pedal edema and Reports leg edema Respiratory: Respiratory: Reports cough PMFSH Past Medical History Medical History Basal cell carcinoma (BCC) in situ of skin (~04/29/14) lower back Screening mammogram, encounter for Family History Family History Mother Hypertension Father Hypertension Social History Social History Smoking status: Never smoker Alcohol intake: current Drinks per week: 2 Substance use: never Substance use type: does not use Lack of Transportation: No Lack of Food: Never True Current Housing: I Have Housing Concerned About Future Housing: No Difficulty Paying Gas/Electric Bills: No Difficulty Paying for Meds: No Currently Unemployed: No Education: Bachelor's Degree Difficulty w/ Childcare or Family Care: No Living arrangements: with family Additional living arrangements comments: Occupation/Education: occupation 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 Gender identity (if verbalized by the patient): Female Sexual Orientation (if Verbalized by the Patient): Straight or Heterosexual Spiritual care concerns: No Meds Home Medications and Allergies Home Medications Medication Instructions Recorded Confirmed Type multivitamin with minerals-folic 1 tablet PO DAILY 07/15/21 12/24/22 History acid 0.4 mg tablet rosuvastatin 5 mg tablet 5 mg PO QHS 12/18/22 12/24/22 History amoxicillin 875 mg-potassium 1 tablet PO Q12H #14 tabs 12/23/22 12/24/22 Rx clavulanate 125 mg tablet doxycycline hyclate 100 mg capsule 100 mg PO DAILY #14 caps 12/23/22 12/24/22 Rx Allergies Allergy/AdvReac Type Severity Reaction Status Date / Time No Known Allergies Allergy Verified 12/23/22 10:09 Vital Signs Vital Signs - 24 hr 12/23/22 18:22 12/23/22 19:21 12/23/22 22:19 Temperature 97.7 F Pulse Rate 89 82 Respiratory Rate 20 Blood Pressure 147/86 H 137/93 H Pulse Oximetry 99 Oxygen Delivery Room Air 12/23/22 23:40 12/23/22 23:00 12/24/22 00:22 Temperature Pulse Rate 88 77 Respiratory Rate 20 20 Blood Pressure 145/81 H 148/89 H 162/89 H Pulse Oximetry 99 96 Oxygen Delivery 12/24/22 00:43 12/24/22 00:00 12/24/22 04:00 Temperature 98.3 F Pulse Rate 84 70 71 Respiratory Rate 18 Blood Press
[2022-12-24] MEDS: AMOXICILLIN/CLAVULANATE K 875-125 MG TAB 1 TABLET PO ×2 (10:56→20:15)
[2022-12-24] MEDS: DOXYCYCLINE HYCLATE 100 MG TABLET PO (10:57)
--- NOTE | 2022-12-24 13:55 | PC.NURSE ---
On 12/24/22, the student, [Mireya Evans], provided care and completed [facility] documentation on this patient. I have reviewed the student's documentation and agree with the findings.
[2022-12-24] MEDS: ACETAMINOPHEN 325 MG TABLET PO (14:16)
[2022-12-24] MEDS: ROSUVASTATIN 5 MG TABLET PO (20:15)
[2022-12-25] VITALS (7 sets, daily range): BP systolic 124–142; BP diastolic 71–79; PULSE 76–89; RESP 16–20; TEMP 36.2–36.7; O2SAT 94–97
[2022-12-25 05:50] LABS: Hemoglobin 11.3 g/dL (12.0-15.0); Mean Corpuscular HGB Conc 30.5 g/dl (32-36); Mean Corpuscular Hemoglobin 29.2 pg (26-34); Mean Corpuscular Volume 95.6 fl (80-100); Mean Platelet Volume 8.5 fl (7.4-10.4); Platelet Count Result 722 k/mm3 (150-375); Red Blood Count 3.87 M/mm3 (4.2-5.4); Red Cell Distribution Width 13.8 % (11.5-14.5)
[2022-12-25 06:02] LABS: Anion Gap 3 mmol/L (8-16); Blood Urea Nitrogen 13 mg/dL (7-17); Calcium 8.4 mg/dL (8.4-10.2); Carbon Dioxide 32 mmol/L (22-30); Chloride 104 mmol/L (98-107); Estimated CRCL calculation 69 ml/min; Estimated Glomerular Filt Rate > 60; Glucose 99 mg/dL (65-110); Potassium 3.3 mmol/L (3.4-5.0); Sodium 139 mmol/L (137-145)
[2022-12-25 06:09] LABS: NT Pro B Type Natriuretic Pept 1200 pg/mL (19.9-100)
[2022-12-25 06:22] LABS: D Dimer 2.34 ug/mL (<0.48)
--- NOTE | 2022-12-25 07:54 | PM.PNCARD ---
Progress Note: A&P Assessment and Plan (1) Shortness of Breath: Code(s): R06.02 - Shortness of breath Status: Acute Assessment and Plan: Due to pneumonia. CT showed RLL pneumonia with WBC 13 adn Plt 664. On antibiotics. (2) Dyslipidemia: Code(s): E78.5 - Hyperlipidemia, unspecified Status: Acute Assessment and Plan: On Rosuvastatin. (3) Diastolic dysfunction: Code(s): I51.89 - Other ill-defined heart diseases Status: Acute Assessment and Plan: Mild. NTproBNP 1,730 which suggests cardiac strain. 12/24/22 Echo: EF 60-65%, grade I diastolic dysfunction (E/e' 10), mild TR. Advise to maintain a low sodium diet as she states she likes her salt. May d/c home from cardiology standpoint and f/u with prn. (4) LBBB (left bundle branch block): Code(s): I44.7 - Left bundle-branch block, unspecified Status: Acute Subjective Date/time seen: 12/25/22 07:54 Interval history: Denies chest pain or sob. Exam Const: General: cooperative, healthy appearing and comfortable Orientation/consciousness: oriented to person, oriented to place and oriented to time Resp: Auscultation: crackles (right base), no rhonchi and no wheezes Cardio: Rate: regular rate Rhythm: regular rhythm Heart sounds: no murmurs Peripheral pulses: dorsalis pedis present Neuro: General: oriented to person, oriented to place and oriented to time Extrem: Right lower extremity: no edema Left lower extremity: no edema Objective Data Vital Signs Vital Signs: Vital Signs - 24 hr 12/24/22 08:00 12/24/22 08:04 12/24/22 12:15 Temperature 98.3 F 97.8 F Pulse Rate 108 H 99 85 Respiratory Rate 16 16 Blood Pressure 137/64 123/73 Pulse Oximetry 100 94 Oxygen Delivery 12/24/22 12:02 12/24/22 16:21 12/24/22 16:04 Temperature 97.2 F L Pulse Rate 88 81 86 Respiratory Rate 17 Blood Pressure 139/75 Pulse Oximetry 98 Oxygen Delivery 12/24/22 19:54 12/24/22 20:00 12/25/22 00:00 Temperature 97.9 F 98.1 F Pulse Rate 80 83 Respiratory Rate 20 20 Blood Pressure 136/79 124/75 Pulse Oximetry 98 94 Oxygen Delivery Room Air 12/24/22 20:00 12/25/22 00:00 12/25/22 03:31 Temperature 98.0 F Pulse Rate 84 80 76 Respiratory Rate 18 Blood Pressure 132/78 Pulse Oximetry 97 Oxygen Delivery 12/25/22 04:00 12/25/22 07:21 Temperature 97.8 F Pulse Rate 85 85 Respiratory Rate 17 Blood Pressure 142/79 H Pulse Oximetry 97 Oxygen Delivery Intake/Output Intake/Output: Intake & Output 12/22/22 12/23/22 12/24/22 12/25/22 23:59 23:59 23:59 23:59 Intake Total 2667 490 Balance 2667 490 Meds/Results Medications: Active Medications Generic Name Dose Route Start Last Admin Trade Name Freq PRN Reason Stop Dose Admin Acetaminophen 325 mg 12/24/22 10:03 12/24/22 14:16 Acetaminophen 325 Mg Tablet PO 325 mg Q6H PRN Administration Mild Pain (1-3) or Fever Amoxicillin/Clavulanate Potassium 1 tablet 12/24/22 09:00 12/24/22 20:15 Amoxicillin/Clavulanate K 875-125 Mg Tab PO 1 tablet Q12H CRICKET Administration Doxycycline Hyclate 100 mg 12/24/22 12:00 12/24/22 10:57 Doxycycline Hyclate 100 Mg Tablet PO 100 mg NOON CRICKET Administration Enoxaparin Sodium 40 mg 12/24/22 09:00 12/24/22 08:45 Enoxaparin 40 Mg/0.4 Ml Syringe SUB-Q 40 mg DAILY CRICKET Administration Ceftriaxone Sodium 1 gm in 50 mls @ 100 mls/hr 12/24/22 09:00 12/24/22 09:15 Rocephin 1 Gm/Ns 50 Ml IVPB Infused Q24H CRICKET Infusion Multivitamins/Calcium 1 tablet 12/24/22 09:00 12/24/22 08:44 Therapeutic Multivitamins/Minerals Tab (*Bkc) PO 1 tablet DAILY CRICKET Administration Perflutren Lipid Microsphere 0 ml 12/24/22 08:11 Perflutren Lipid Microspheres 1.5 Ml Vial Diluted To 10 Ml Total Volume IV PUSH 12/27/22 08:11 ONCE PRN adequate visualization Protocol Rosuvastatin Calcium 5 mg 12/24/22 2
--- NOTE | 2022-12-25 07:55 | PM.IMPN ---
Progress Note: A&P Assessment and Plan (1) Pneumonia: Code(s): J18.9 - Pneumonia, unspecified organism Status: Inactive (2) Heart failure: Qualifiers: Heart failure chronicity: acute Heart failure type: unspecified Qualified Code(s): I50.9 - Heart failure, unspecified Code(s): I50.9 - Heart failure, unspecified Status: Acute Assessment and Plan: BNP on admission was 1730, will continue to monitor K+, calcium WNL Daily weights ordered cardiology consulted ECHO ordered diffuse edema had improved on examination this morning, edema is bilateral so no concern for DVT at this time. Will d/c fluids and hold off on Lasix at this time. (3) Shortness of Breath: Code(s): R06.02 - Shortness of breath Status: Acute Assessment and Plan: Crackles heard at lung bases on exam Chest XR showed pneumonia CT ruled out PE (4) UTI (urinary tract infection): Code(s): N39.0 - Urinary tract infection, site not specified Status: Acute Assessment and Plan: D/C cipro, ER started on doxycycline and Augmentin. Will continue (5) Dyslipidemia: Code(s): E78.5 - Hyperlipidemia, unspecified Status: Acute Assessment and Plan: Continue rosuvastatin Subjective Date/time seen: 12/25/22 07:55 Interval history: This is a 62 year old female who presented to the hospital on 12/23/22 Review of Systems Review of Systems: All systems reviewed & are unremarkable except as noted in HPI and below Cardiovascular: Cardiovascular: Reports pedal edema and Reports leg edema Respiratory: Respiratory: Reports cough Exam Narrative: CONST: No acute distress. Well nourished. HENT: Head is normocephalic and atraumatic. Moist mucous membranes. No posterior oropharynx erythema. EYES: No conjunctival icterus, injection, or pallor. PERRL. NECK: No meningeal signs. RESP: Able to speak in full sentences. Normal respiratory effort. CTAB however slightly diminished at the bilateral bases. CARDIO: Regular rate. Regular rhythm. 2+ DP and radial pulses bilaterally. GI: Nondistended. No tenderness to palpation. Soft. : No CVA tenderness to palpation. SKIN: No rashes or lesions noted on exposed skin. NEURO: Oriented x3. Moves all extremities. EXTREM: Bilateral 1+ lower extremity pitting edema. PSYCH: Normal affect. Objective Data Vital Signs Vital Signs: Vital Signs - 24 hr 12/24/22 08:00 12/24/22 08:04 12/24/22 12:15 Temperature 98.3 F 97.8 F Pulse Rate 108 H 99 85 Respiratory Rate 16 16 Blood Pressure 137/64 123/73 Pulse Oximetry 100 94 Oxygen Delivery 12/24/22 12:02 12/24/22 16:21 12/24/22 16:04 Temperature 97.2 F L Pulse Rate 88 81 86 Respiratory Rate 17 Blood Pressure 139/75 Pulse Oximetry 98 Oxygen Delivery 12/24/22 19:54 12/24/22 20:00 12/25/22 00:00 Temperature 97.9 F 98.1 F Pulse Rate 80 83 Respiratory Rate 20 20 Blood Pressure 136/79 124/75 Pulse Oximetry 98 94 Oxygen Delivery Room Air 12/24/22 20:00 12/25/22 00:00 12/25/22 03:31 Temperature 98.0 F Pulse Rate 84 80 76 Respiratory Rate 18 Blood Pressure 132/78 Pulse Oximetry 97 Oxygen Delivery 12/25/22 04:00 12/25/22 07:21 Temperature 97.8 F Pulse Rate 85 85 Respiratory Rate 17 Blood Pressure 142/79 H Pulse Oximetry 97 Oxygen Delivery Intake/Output Intake/Output: Intake & Output 12/22/22 12/23/22 12/24/22 12/25/22 23:59 23:59 23:59 23:59 Intake Total 2667 490 Balance 2667 490 Meds/Results Medications: Active Medications Generic Name Dose Route Start Last Admin Trade Name Santiq PRN Reason Stop Dose Admin Acetaminophen 325 mg 12/24/22 10:03 12/24/22 14:16 Acetaminophen 325 Mg Tablet PO 325 mg Q6H PRN Administration Mild Pain (1-3) or Fever Amoxicillin/Clavulanate Potassium 1 tablet 12/24/22 09:00 12/24/22 20:15 Amoxicillin/Clavulanate K 875-125 Mg Tab PO 1
[2022-12-25] MEDS: AMOXICILLIN/CLAVULANATE K 875-125 MG TAB 1 TABLET PO (08:21)
[2022-12-25] MEDS: THERAPEUTIC MULTIVITAMINS/MINERALS TAB (*BKC) 1 TABLET PO (08:23)
[2022-12-25] MEDS: ACETAMINOPHEN 325 MG TABLET PO (08:26)
[2022-12-25] MEDS: DOXYCYCLINE HYCLATE 100 MG TABLET PO (12:26)
--- NOTE | 2022-12-25 13:53 | PM.DS ---
DS: Admitting Diagnosis Discharge Date 12/25/22 Admitting Diagnosis Heart failure Urinary tract infection Shortness of breath Dyslipidemia DS: Discharge Diagnosis Discharge Diagnosis (1) Pneumonia: Code(s): J18.9 - Pneumonia, unspecified organism Status: Inactive (2) Heart failure: Qualifiers: Heart failure chronicity: acute Heart failure type: unspecified Qualified Code(s): I50.9 - Heart failure, unspecified Code(s): I50.9 - Heart failure, unspecified Status: Acute (3) Shortness of Breath: Code(s): R06.02 - Shortness of breath Status: Acute (4) UTI (urinary tract infection): Code(s): N39.0 - Urinary tract infection, site not specified Status: Acute (5) Dyslipidemia: Code(s): E78.5 - Hyperlipidemia, unspecified Status: Acute DS: Summary Hospital Course Reason for hospitalization: Edema of the hands abdomen and bilateral lower extremity Hospital Course: This is a 62-year-old female who presented to the hospital on 12/23/2022 with complaints diffuse swelling throughout her body mainly in her hands feet in abdomen. She developed a high fever of 101-102 for approximately 1 week after returning from vacation in [place]. She was found have pneumonia and has been treated with Augmentin and doxycycline. Workup in the hospital included chest x-ray which showed pneumonia, a CT of the abdomen pelvis without contrast which showed a right lower lobe pneumonia with small right pleural effusion, trace left pleural effusion, CTA of the chest was negative for acute pulmonary embolus, dependent right lower lobe consolidation, scattered ground-glass nodular opacities. Labs on admission significant for white blood cell count of 15.0, platelet count of 699, D-dimer 2.86, potassium 2.9, AST 50, tropes negative x2, pro BNP 17 30, TSH 1.77. Patient also had an echo which shown left ventricular diastolic function is grade 1, LV systolic function is normal with an estimated EF of 60 does 65%, normal RV function. Cardiology was consulted and following. Their recommendations is for her to follow a low-sodium diet and follow-up with them as needed. She has been on treatment for pneumonia with Augmentin and doxycycline. Urine shown 1+ blood, many rbc's otherwise normal. Urine culture from 12/18/2022 was showing no growth. Rocephin stopped at this time. On exam today patient is alert and oriented x3, she denies pain, vital signs have been stable, afebrile, she is on room air. Patient states she rested really well overnight and is feeling much better today now that the swelling has gone down. Labs today revealed white blood cell count of 12.0, RBC 3.87, hemoglobin 11.3, hematocrit 37.0, platelets 722, D-dimer 2.34, sodium 139, potassium 3.3, chloride 104, BUN 13, creatinine 2.1, proBNP 1200, Mag 2.1. Patient has no new complaints today. She is stable for discharge. Instructed patient to finish her antibiotics and follow up with her primary care in 1 week, and follow up with Cardiology in 2 weeks. Time Spent with Patient Time attestation: Total time spent providing and/or coordinating discharge services: Exam Const: General: comfortable and no acute distress HENMT: Mouth: Yes moist mucous membranes Eyes: General: appearance normal, both eyes and all related structures Sclera: sclerae normal Pupils: Equal, round and reactive pupils present EOM: EOMs intact bilaterally Neck: Neck: supple and no JVD Carotids: no bruits Lymphatic: lymphadenopathy not noted Resp: Effort & Inspection: normal respiratory effort Auscultation: crackles Other: Bilateral upper lobe clear to auscultation Cardio: Rate: regular rate Rhythm: regular rhythm Heart sounds: no gallops, no murmurs and no rubs Other: No edema, peripheral pulses 2/2 GI: GI Palp: Yes Soft to palpation, No Firmness to palpation present (GI), No Tenderness to palpation present (GI) and No Guarding due to palpa
--- NOTE | 2022-12-25 14:27 | PC.NURSE ---
On 12/25/22, the student, [Carolina Strange], provided care and completed [facility] documentation on this patient. I have reviewed the student's documentation and agree with the findings.
== END 2022-12-25 14:27 | disposition home or self-care (01) ==
LOC: ANHED 23:06 → ANH2MED 12-25 13:43
PROVIDERS: Nurse Practitioner; Admitting Provider Internal Medicine; Emergency Provider Student in an Organized Health Care Education/Training Program; PCP Nurse Practitioner Family; Visit Provider Internal Medicine
DX: J18.9 Pneumonia, unspecified organism (principal); I50.9 Heart failure, unspecified; N39.0 Urinary tract infection, site not specified; R79.89 Other specified abnormal findings of blood chemistry; I44.7 Left bundle-branch block, unspecified; R79.1 Abnormal coagulation profile; E78.5 Hyperlipidemia, unspecified; I34.0 Nonrheumatic mitral (valve) insufficiency; F10.90 Alcohol use, unspecified, uncomplicated; Z79.899 Other long term (current) drug therapy; Z85.828 Personal history of other malignant neoplasm of skin
CPT/HCPCS: 36415; 71046; 71275; 74176; 80048; 80053; 81001; 83735; 83880; 84443; 84484; 85025; 85027; 85380; 85610; 85730; 93005; 93306; 96360; 96361; 96365; 96366; 96372; 99285; A9270; G0378; J0696; J1650; J7030; Q9967

== ENCOUNTER 2023-04-27 10:18 | Outpatient (CLI) | payer BC, SELFPAY ==
--- NOTE | ~2023-04-27 | XR_ITS ---
Clinical Indication: Pneumonia PA and lateral views of the chest: Comparison: Lungs are clear, without focal consolidation or pleural effusion. Findings: The lungs are clear, without evidence of focal consolidation or pleural effusion. Cardiome diastinal silhouette is within normal limits. Bones and soft tissues are unremarkable. Impression: Normal chest. Reviewed, dictated and finalized at location . [employer] Impression: Normal chest.
== END 2023-04-27 10:19 | disposition home or self-care (01) ==
LOC: ANHIMG 10:20
PROVIDERS: PCP Family Medicine; Visit Provider Family Medicine
DX: J18.9 Pneumonia, unspecified organism (principal)
CPT/HCPCS: 71046

== ENCOUNTER 2023-12-02 16:29 | Outpatient (CLI) | payer BC, SELFPAY ==
--- NOTE | ~2023-12-02 | MM_ITS ---
EXAMINATION: MM screening [facility] BI w ce HISTORY: Screening TECHNIQUE: Craniocaudal and mediolateral oblique 3-D tomosynthesis images were obtained and synthetic 2-D images were generated. CAD analysis was submitted and interpreted. COMPARISON: Comparison to multiple prior studies sequentially, with oldest reviewed study dated 04/26. BREAST PARENCHYMAL COMPOSITION: Not dense: There are scattered areas of fibroglandular density. FINDINGS: There is no evidence of suspicious mass, calcification, or architectural distortion to sugg est malignancy in either breast. There has been no suspicious interval change. IMPRESSION: 1. No mammographic evidence of malignancy. 2. Recommend routine screening mammography in one year. BI-RADS Category 1: Negative Reviewed, dictated and finalized at location B.
== END 2023-12-02 16:30 | disposition home or self-care (01) ==
LOC: ANHIMG 16:31
PROVIDERS: PCP Family Medicine; Visit Provider Obstetrics & Gynecology
DX: Z12.31 Encounter for screening mammogram for malignant neoplasm of breast (principal)
CPT/HCPCS: 77063; 77067

== ENCOUNTER 2024-02-16 16:19 | Emergency (ER) | payer BC, SELFPAY ==
[2024-02-16 16:32] VITALS: BP 130/79; PULSE 82; RESP 16; TEMP 36.8; O2SAT 98
--- NOTE | 2024-02-16 16:35 | ED_ITS ---
HPI - Ear Problem General Chief complaint: Ear Stated complaint: ear infection Time Seen by Provider: 02/16/24 16:35 Source: patient, RN notes reviewed and old records reviewed Mode of arrival: ambulatory Limitations: no limitations History of Present Illness HPI Narrative: Patient presents with complaints of right ear pain, muffled hearing from the ear, sore throat, slightly runny nose. She reports that symptoms have been bothersome for a couple of days. She has not been taking anything for her symptoms. She does report that she has frequent cerumen impactions, but right ear is more painful than it typically is when this happens. She denies any injury or trauma. She voices no other concerns or complaints at this time. Related Data Home Medications ?Medication ?Instructions ?Recorded ?Confirmed ?Last Taken ?Type multivitamin with minerals-folic 1 tablet PO DAILY 07/15/21 10/26/23 1 Day Ago History acid 0.4 mg tablet ~12/23/22 Allergies Allergy/AdvReac Type Severity Reaction Status Date / Time No Known Allergies Allergy Verified 02/16/24 16:28 Review of Systems Review of Systems: All systems reviewed & are unremarkable except as noted in HPI and below Constitutional: Constitutional: Reports as per HPI and Reports no additional constitutional complaints ENT: Reports system reviewed and no additional complaints, except as docume nted, Reports as per HPI, Reports otalgia and Reports nasal discharge Cardiovascular: Cardiovascular: Reports no additional cardiovascular complai nts Respiratory: Respiratory: Reports no additional respiratory complaints Gastrointestinal: Gastrointestinal: Reports no additional gastrointestinal complaints PMFSH Past Medical History Medical History Colon cancer screening Screening mammogram, encounter for Basal cell carcinoma (BCC) in situ of skin (~04/29/14) lower back Family History Family History Mother Hypertension Father Hypertension Sibling Hypertension Depression Anxiety Hyperlipidemia Social History Social History Smoking status: Never smoker Alcohol intake: current Drinks per week: 2 Substance use: never Substance use type: does not use Lack of Transportation: No Lack of Food: Never True Current Housing: I Have Housing Concerned About Future Housing: No Difficulty Paying Gas/Electric Bills: No Difficulty Paying for Meds: No Currently Unemployed: No Education: Bachelor's Degree Difficulty w/ Childcare or Family Care: No Living arrangements: with family Additional living arrangements comments: Occupation/Education: occupation 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 There is no relevant family history pertinent to the patient complaint. Exam Const: General: cooperative, no acute distress, alert and awake Orientation/consciousness: oriented to person, oriented to place and oriented to time HENMT: Head: normal to inspection Ears: TM normal on the left and Abnormal EAC present cerumen impaction on the right Mouth: Yes moist mucous membranes Throat: posterior oropharynx abnormal erythema Resp: Effort & Inspection: normal respiratory effort and able to speak in complete sentences Auscultation: clear to auscultation bilaterally, no crackles, no rales, no rhonchi and no wheezes Cardio: Palpation: normal PMI Rate: regular rate Rhythm: regular rhythm Heart sounds: S1 normal heart sound present and S2 normal heart sound present Neuro: General: oriented to person, oriented to place and oriented to time Cranial nerves: Yes CN's II-XII intact bilaterally Psych: Appearance: grossly normal Thought process: Normal thought process present Insight: Good insight present (Psych) Judgement: Good judgement present (Psych) Course Course Level of Care: Express Care Visit Vital Signs Vital signs: Vital Signs Temperature 98.3 F 02/16/24 16:32 Pulse Rate 82 02/16/24 16:32 Respiratory Rate 16 02/16/24 16:32 Blood Pressure 130/79 02/16/24 16:32 Pulse Oximetry 98 02/16/24 16:32 Oxygen Delivery Room Air 02/16/24 16:32 Temperature 98.3 F 02/16/24 16:32 Pulse Rate 82 02/16/24 16:32 Respiratory Rate 16 02/16/24 16:32 Blood Pressure 130/79 02/16/24 16:32 Pulse Oximetry 98 02/16/24 16:32 Oxygen Delivery Room Air 02/16/24 16:32 Reviewed Procedures Ear Wax Removal Right Ear: Ear Wax Removal Date: 02/16/24 Cerumenolytic Used: 5-10% Sodium Bicarb solution Results: Re-examined: cerumen removed completely TM Examination: TM(s) erythematous Ear Canal Exam: atraumatic Patient Tolerated Procedure: well Complications: no problems Technique: ear canal irrigated and ear canal curetted Additional Comments: Exam of TM consistent with otitis media Medical Decision Making MDM Narrative Medical decision making narrative: Discharge instructions reviewed with patient, as well as provided in writing per nursing staff. The instructions also include specific and strict return/GO TO THE ER as well as f/u information. All questions have been answered, and the patient deny any further questions with discharge and discharge plan. Some parts of this dictation were generated by voice recognition software and may contain typographical and/or grammatical inaccuracies. Medical Records Medical records reviewed: Yes I reviewed the external patient's medical records. Vital Signs Vital Signs: Vital Signs Temperature 98.3 F 02/16/24 16:32 Pulse Rate 82 02/16/24 16:32 Respiratory Rate 16 02/16/24 16:32 Blood Pressure 130/79 02/16/24 16:32 Pulse Oximetry 98 02/16/24 16:32 Oxygen Delivery Room Air 02/16/24 16:32 Temperature 98.3 F 02/16/24 16:32 Pulse Rate 82 02/16/24 16:32 Respiratory Rate 16 02/16/24 16:32 Blood Pressure 130/79 02/16/24 16:32 Pulse Oximetry 98 02/16/24 16:32 Oxygen Delivery Room Air 02/16/24 16:32 reviewed Lab Data Lab results reviewed: Yes I reviewed the patient's lab results. Lab results narrative: reviewed Discharge Plan Discharge Clinical Impression: Otitis media Qualifiers: Otitis media type: suppurative Chronicity: acute Laterality: right Recurrence: not specified as recurrent Spontaneous tympanic membrane rupture: without spontaneous rupture Qualified Code(s): H66.001 - Acute suppurative otitis media without spontaneous rupture of ear drum, right ear Cerumen impaction Qualifiers: Laterality: right Qualified Code(s): H61.21 - Impacted cerumen, right ear Patient Disposition: Home, Self-Care Condition: Stable Instructions: Antibiotic Form, Ear Infection (ED) Additional Instructions: Take medication as prescribed. Follow with primary care provider. Emergency department for new or worse symptoms Patient Language: Jamaican Prescriptions: New amoxicillin 875 mg tablet 875 mg PO Q12H Qty: 20 0RF No Action rosuvastatin 5 mg tablet 5 mg PO QHS Qty: 90 3RF multivit with min-folic acid 0.4 mg Tablet 1 tablet PO DAILY alendronate 70 mg tablet 70 mg PO WEEKLY Qty: 12 2RF Follow-up/Referrals: Yahaira Harper MD [Primary Care Provider] - 2 Weeks Time of Disposition: 17:06
[2024-02-16 17:00] LABS: EDSTREPNEGPOS1 Negative (Negative)
== END 2024-02-16 17:08 | disposition home or self-care (01) ==
PROVIDERS: Emergency Provider Nurse Practitioner Family; PCP Family Medicine
DX: H66.001 Acute suppurative otitis media without spontaneous rupture of ear drum, right ear (principal); H61.21 Impacted cerumen, right ear; Z85.828 Personal history of other malignant neoplasm of skin
CPT/HCPCS: 69210; 87081; 87880; 99213; G0463

== ENCOUNTER 2024-04-04 08:02 | Emergency (ER) | payer BC, SELFPAY ==
--- NOTE | 2024-04-04 08:03 | ED_ITS ---
HPI - URI/Sore Throat General Chief Complaint: Upper Respiratory Infection Stated Complaint: Upper Respiratory Symptoms Time Seen by Provider: 04/04/24 08:03 Source: patient Mode of arrival: ambulatory Limitations: no limitations History of Present Illness HPI Narrative: Jaqueline is a 64 year old female patient presenting to the clinic today with complaints of headache, body aches, fever, chills, sore throat, and cough. She reports symptoms started Wednesday night. Has had exposure to influenza A. Denies any chest pain or shortness of breath. MD elicited complaint: fever, cough, sore throat and nasal congestion Related Data Home Medications ?Medication ?Instructions ?Recorded ?Confirmed ?Last Taken ?Type multivitamin with minerals-folic 1 tablet PO DAILY 07/15/21 10/26/23 1 Day Ago History acid 0.4 mg tablet ~12/23/22 Allergies Allergy/AdvReac Type Severity Reaction Status Date / Time No Known Allergies Allergy Verified 04/04/24 08:12 Review of Systems Review of Systems: Pertinent positives per HPI. Patient denies any rash, visual changes, dizziness, shortness of breath, chest pain, palpitations, nausea, vomiting, diarrhea, constipation, abdominal pain, or any urinary issues. [facility] Past Medical History Medical History Colon cancer screening Screening mammogram, encounter for Basal cell carcinoma (BCC) in situ of skin (~04/29/14) lower back Family History Family History Mother Hypertension Father Hypertension Sibling Hypertension Depression Anxiety Hyperlipidemia Social History Social History Smoking status: Never smoker Alcohol intake: current Drinks per week: 2 Substance use: never Substance use type: does not use Lack of Transportation: No Lack of Food: Never True Current Housing: I Have Housing Concerned About Future Housing: No Difficulty Paying Gas/Electric Bills: No Difficulty Paying for Meds: No Currently Unemployed: No Education: Bachelor's Degree Difficulty w/ Childcare or Family Care: No Living arrangements: with family Additional living arrangements comments: Occupation/Education: occupation 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 There is no relevant family history pertinent to the patient complaint. Exam Narrative: General: Well-developed, well nourished, in no apparent distress Head: Normocephalic, atraumatic Eyes: Pupils equally round and reactive to light bilaterally, EOM intact, sclera and conjunctive clear, no discharge, lids normal Ears: TMs intact and congested, ear canals clear, no drainage, grossly hearing normal. Nose: Nares patent, clear nasal discharge, no inflammation, no sinus tenderness. Mouth: Oral pharynx red without lesions or masses, good dentition, MMM. Postnasal drip Neck: Supple, trachea midline, no enlargement of anterior or posterior cervical nodes, no thyroid masses or goiter palpable. Cardio: Regular rate and rhythm, s1 and s2 normal, no murmur appreciated. Resp: Clear to auscultation bilaterally, no rhonchi, rales, wheezing or rubs Course Course Emergency Course: Portions of this record may have been created with voice recognition software. Level of Care: Express Care Visit Vital Signs Vital signs: Vital Signs Temperature 37.9 C H 04/04/24 08:18 Pulse Rate 96 04/04/24 08:18 Respiratory Rate 16 04/04/24 08:18 Blood Pressure 121/80 04/04/24 08:18 Pulse Oximetry 99 04/04/24 08:18 Temperature 37.9 C H 04/04/24 08:18 Pulse Rate 96 04/04/24 08:18 Respiratory Rate 16 04/04/24 08:18 Blood Pressure 121/80 04/04/24 08:18 Pulse Oximetry 99 04/04/24 08:18 Vital signs reviewed MDM - URI/Sore Throat MDM Narrative Medical decision making narrative: At the time of visit patient is resting comfortably on the exam table. Patient appears to be nontoxic. Labs: Influenza testing was positive in the clinic for influenza A. Plan: Patient has influenza A. Tamiflu was prescribed. Risk and benefits of the medication was discussed with the patient she voiced understanding and would like this medication. Supportive measures were discussed with the patient and they voiced understanding discharge instructions and agrees to treatment plan. Return precautions reviewed Differential Diagnosis Differential diagnosis: Likely upper respiratory infection, otitis media, sinusitis, viral infection, bronchitis, influenza, pharyngitis and other (COVID) Discharge Plan Discharge Clinical Impression: Influenza A Patient Disposition: Home, Self-Care Condition: Stable Instructions: Antibiotic Form, Influenza (ED) Additional Instructions: Influenza A testing was positive Take prescription medications only as prescribed-Tamiflu Increase fluids and stay well hydrated Tylenol/motrin for pain/fever Flonase and OTC antihistamines as directed Vicks vapor rub to open sinuses Sinus rinses for congestion Cepacol spray, cough drops, throat lozenges, warm tea with honey/lemon, gargle salt water to soothe throat BRAT diet for diarrhea Clear liquids x 24 hours then advance as tolerated for nausea/vomiting Go to the ED if you develop a worsening in your condition- high fever not controlled by Tylenol or Motrin, dehydration, weakness, lethargy, shortness of breath, or chest pain. Follow up with your PCP in 3-5 days if symptoms persist. Patient Language: Guyanese Prescriptions: New oseltamivir [Tamiflu] 75 mg capsule 75 mg PO Q12H 5 Days Qty: 10 0RF No Action multivit with min-folic acid 0.4 mg Tablet 1 tablet PO DAILY alendronate 70 mg tablet 70 mg PO WEEKLY Qty: 12 2RF rosuvastatin 5 mg tablet 5 mg PO QHS Qty: 90 3RF Follow-up/Referrals: Yahaira Harper MD [Primary Care Provider] - Time of Disposition: 08:29 Quality NIHSS Nursing Documentation ED NIHSS nursing documentation: reviewed/agree
[2024-04-04 08:18] VITALS: BP 121/80; PULSE 96; RESP 16; TEMP 37.9; O2SAT 99
[2024-04-04 08:38] LABS: EDINFLUASCREEN Positive (Negative); EDINFLUBSCREEN Negative (Negative)
== END 2024-04-04 08:32 | disposition home or self-care (01) ==
PROVIDERS: Emergency Provider Nurse Practitioner Family; PCP Family Medicine
DX: J10.1 Influenza due to other identified influenza virus with other respiratory manifestations (principal); Z86.007 Personal history of in-situ neoplasm of skin
CPT/HCPCS: 87804; 99213; G0463